=== PATIENT | female | born 1955 ===

== ENCOUNTER 2019-03-14 06:58 | Day surgery (SDC) | payer OTHER ==
[2019-03-14 07:28] VITALS: BMI 43.9
--- NOTE | 2019-03-14 07:40 | CP.SDSHP ---
<Adis Ponce - Last Filed: 03/14/19 07:38> Same Day Surgery H & P - History Proposed Procedure: EGD Pre-Op Diagnosis: Epigastric pain. Heartburn. fatty liver. ovarian cyst - Previous Medical/Surgical History Cardiac: Hypertension Pulmonary: Asthma Endocrine/Metabolic: Diabetes, Obesity Misc: Other (RA, indigestion, amyloidosis, obesity) - Allergies Allergies: Allergies No Known Allergies Allergy (Verified 05/27/16 07:58) - Current Medications Current Medications: Famotidine humira zolpidem albuterol dicofenoc dyclomine simvastatin metformin xanax losartan xanax singulair oxycodone amlodipine - Physical Exam General Appearance: no acute distress Mental Status: Alert & Oriented x3 Neuro: WNL Heart: WNL Lungs: WNL GI: WNL - {Optional Preform as Required} Abdomen: WNL - Impression Impression: epigastric pain, r/o PUD, H. pylori. fatyy liver. heart burn Pt. Evaluated Today:Candidate for Anesthesia & Procedure: Yes - Date & Time Date: 03/14/19 Time: 07:15 Short Stay Discharge - Short Stay Discharge Admitting Diagnosis/Reason for Visit: GASTRO-ESOPHAGEAL REFLUX DISEASE WITHOUT ESOPHAGIT Disposition: HOME/ ROUTINE <Derrick Wray - Last Filed: 03/14/19 08:08> Same Day Surgery H & P - Allergies Allergies: Allergies No Known Allergies Allergy (Verified 05/27/16 07:58) - Physical Exam Vital Signs: Vital Signs 03/14/19 03/14/19 07:32 07:39 Temperature 97 F L 97 F L Pulse Rate 80 80 Respiratory 18 18 Rate Blood Pressure 134/89 134/89 O2 Sat by Pulse 97 97 Oximetry Attending/Attestation - Attestation I have personally seen and examined this patient.: Yes I have fully participated in the care of the patient.: Yes I have reviewed all pertinent clinical information: Yes Notes (Text): 03/14/19 08:08 patient seen and chart reviewed EGD to be done due to persistent heartburn and epigastric pain
[2019-03-14] MEDS ORDERED: Lidocaine Hydrochloride 5 ML INJ ONE (08:06)
[2019-03-14] MEDS ORDERED: Midazolam 2 MG/2 ML VIAL ONE (08:06)
[2019-03-14] MEDS ORDERED: Propofol 10 mg/ml Inj (20 ML) ONE (08:06)
[2019-03-14 08:36] VITALS: TEMP 96.8
[2019-03-14 09:16] VITALS: O2SAT 96
[2019-03-14 09:31] VITALS: BP 127/82; PULSE 80; RESP 13
== END 2019-03-14 09:42 | disposition home or self-care (01) ==
LOC: C.ENDO 06:58
PROVIDERS: ATTEND Internal Medicine Gastroenterology
DX: K21.0 Gastro-esophageal reflux disease with esophagitis (principal); R10.13 Epigastric pain; K76.0 Fatty (change of) liver, not elsewhere classified; E66.01 Morbid (severe) obesity due to excess calories; K44.9 Diaphragmatic hernia without obstruction or gangrene; E11.9 Type 2 diabetes mellitus without complications; I10 Essential (primary) hypertension; J45.909 Unspecified asthma, uncomplicated; Z79.84 Long term (current) use of oral hypoglycemic drugs; Z79.899 Other long term (current) drug therapy; K29.70 Gastritis, unspecified, without bleeding
CPT/HCPCS: 43239; 82948; 88305; 88312; 88313; 88342; J2250; J2704